=== PATIENT | female | born 1945 | race Caucasian/White ===

== ENCOUNTER 2016-05-31 22:53 | Inpatient (IN) | payer OTHER, MEDICARE ==
[~2016-05-31] VITALS: Ht 162.6 cm; Wt 54.4 kg
--- NOTE | 2016-05-31 23:05 | NUR ---
PT BIBA, PER EMS PTS BROTHER CALLED 911 FOR SISTER HAVING ALTERED MENTAL STATUS. PTS BROTHER WAS FOUND TO BE INTOXICATED, PT ARRIVES CONFUSED TO PLACE AND TIME BUT AWARE OF PERSON. PT HAS NO STROKE DEFICITS NOTED. FACIAL SYMMETRY WNL, SPEECH CLEAR. PT HAS NO HISTORY OF CVA.
--- NOTE | 2016-05-31 23:05 | NUR ---
PT BIBA FOR ALTERED MENTAL STATUS. 911 CALLED BY PT'S BROTHER. PER EMS, PT CONFUSED ON ARRIVAL. PT CONFUSED ON ARRIVAL TO ER.
--- NOTE | 2016-05-31 23:28 | NUR ---
PT TO CT SCAN VIA STRETCHER
--- NOTE | 2016-05-31 23:39 | ED AMS/SEIZURE/WEAK/DIZZY ---
History of Present Illness General Chief Complaint: Altered Mental Status Stated Complaint: AMS Source: patient, family, old records, EMS Exam Limitations: clinical condition, poor historian Vital Signs & Intake/Output Vital Signs & Intake/Output Vital Signs Date Time Temp Pulse Resp B/P Pulse O2 O2 Flow FiO2 Ox Delivery Rate 05/31 2304 96.0 70 20 101/59 99 Room Air Allergies Coded Allergies: NO KNOWN ALLERGIES (02/03/12) Triage Note: PT'S BROTHER CALLED EMS FOR PT FOR ALTERED MENTAL STATUS. PT WAS CONFUSED ON ARRIVAL OF EMS. Triage Nurses Notes Reviewed? yes Onset: Just prior to arrival Duration: constant, continues in ED Timing: recent history Severity: moderate No Modifying Factors: none LMP (ages 10-50): post menopausal : No Patient currently breastfeeds: No HPI: Prior to admission EMS report brother called due to patient confusion. The patient denies fever chills nausea vomiting diarrhea abdominal pain chest pain shortness of breath headache dysuria rash bleeding. Past History Medical History Any Pertinent Medical History? none Surgical History Surgical History: non-contributory Psychosocial History What is your primary language French Family History Hx Contributory? No Review of Systems Review of Systems Constitutional: Reports: no symptoms. EENTM: Reports: no symptoms. Respiratory: Reports: no symptoms. Cardiovascular: Reports: no symptoms. GI: Reports: no symptoms. Genitourinary: Reports: no symptoms. Musculoskeletal: Reports: no symptoms. Skin: Reports: no symptoms. Neurological/Psychological: Reports: see HPI, cognitive dysfunction, confusion. Hematologic/Endocrine: Reports: no symptoms. Immunologic/Allergic: Reports: no symptoms. All Other Systems: Reviewed and Negative Physical Exam Physical Exam General Appearance: well developed/nourished, alert, awake, anxious, mild distress, thin Head: atraumatic, normal appearance Eyes: Bilateral: normal appearance, PERRL, EOMI. Ears, Nose, Throat: normal pharynx, normal ENT inspection, hearing grossly normal, moist mucus membranes Neck: normal inspection, supple, full range of motion, no midline tenderness Respiratory: normal breath sounds, chest non-tender, no respiratory distress, quiet respiration, lungs clear Cardiovascular: regular rate/rhythm, normal peripheral pulses, norml femoral pulses equa Peripheral Pulses: 4+ carotid (R), 4+ carotid (L) Gastrointestinal: normal bowel sounds, soft, non-tender, no organomegaly Back: normal inspection, normal range of motion Extremities: normal range of motion, no ligament instability Neurologic/Psych: no motor/sensory deficits, awake, alert, normal mood/affect, 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 Skin: intact, normal color, warm/dry Lymphatic: no anterior cervical donald Core Measures ACS in differential dx? No CVA/TIA Diagnosis: No Severe Sepsis Present: No Septic Shock Present: No Progress Differential Diagnosis: alcohol intoxication, CVA/stroke, drug intoxication, electrolyte imbalance, intracranial Hem. Plan of Care: Orders Procedure Date/time Status Regular Diet 06/02 B Active OXYGEN SETUP (GEN) 06/01 124 Active Saline Lock 06/01 124 Active Admit to inpatient 06/01 124 Active Vital Signs 06/01 124 Active Activity/Ambulation 06/01 124 Active Code Status 06/01 124 Active Add-on Test (ER Only) 05/31 235 Active URINALYSIS 05/31 2322 Active TROPONIN LEVEL 05/31 2322 Complete ETHANOL 05/31 2322 Complete COMPREHENSIVE METABOLIC PANEL 05/31 2322 Complete CBC WITHOUT DIFFERENTIAL 05/31 2322 Complete EKG 05/31 2322 Active Laboratory Tests 06/01/16 0003: Anion Gap 9, Estimated GFR > 60, BUN/Creatinine Ratio 18.8, Glucose 96, Calcium 9.6, Total Bilirubin 0.4, AST 18, ALT 31, Alkaline Phosphatase 45, Troponin I < 0.01, Total Protein 6.4, Albumin 4.0, Globulin 2.4, Albumin/Globulin Ratio 1.7, CBC w Diff NO MAN DIFF REQ, RBC 3.89 L, MCV 95.6, MCH 32.0 H, RDW 12.5, MPV 10.4, Gran % 65.7, Lymphocytes % 27.1, Monocytes % 4.4, Eosinophils % 2.0, Basophils % 0.8, Absolute Granulocytes 5.3, Absolute Lymphocytes 2.2, Absolute Monocytes 0.4, Absolute Eosinophils 0.2, Absolute Basophils 0.1, PUBS MCHC 33.5, Serum Alcohol < 10.0 Diagnostic Imaging: Viewed by Me: Radiology Read, CT Scan. Discussed w/RAD: Radiology Read, CT Scan. Initial ED EKG: normal axis, normal intervals, normal p-waves, normal QRS complex, normal sinus rhythm, no ST T wave changes Rhythm Strip: normal sinus rhythm Departure Departure Time of Disposition: 99 Disposition: STILL A PATIENT Condition: Stable Clinical Impression Primary Impression: Altered mental status, unspecified Qualifiers: Altered mental status type: disorientation Qualified Code: R41.0 - Disorientation, unspecified Secondary Impressions: Dementia Qualifiers: Dementia type: unspecified type Dementia behavioral disturbance: without behavioral disturbance Qualified Code: F03.90 - Unspecified dementia without behavioral disturbance Referrals: PATIENT HAS NO PRIMARY CARE DR (PCP/Family) Departure Forms: Customer Survey General Discharge Information Admission Note Spoke With: TRISTAN AZEVEDO,[facility] Documentation of Exam: Documentation of any treatments & extenuating circumstances including Concerns Regarding Discharge (functional status, medication knowledge or non-compliance, living conditions, etc.) that warrant an admission rather than observation: Serial neurologic exam investigation into home situation obtain collateral information from family medication adjustment geriatric evaluation continuing care discharge planning
--- NOTE | 2016-05-31 23:41 | NUR ---
EKG IN PROGRESS
--- NOTE | 2016-06-01 00:03 | CT SCAN REPORT ---
EXAMINATION: CT HEAD WITHOUT CONTRAST CLINICAL INFORMATION: Altered mental status. Question cerebrovascular accident. COMPARISON: CT scan of the head 02/03/2012. TECHNIQUE: Contiguous axial imaging was performed from the skull base to vertex without intravenous administration of contrast. DLP: 600.71 mGy-cm FINDINGS: There is no acute intracranial hemorrhage or abnormal extra-axial collection. No intracranial mass effect or midline shift. Lateral and third ventricles are normal. No hydrocephalus. Martinez-white matter differentiation is preserved and there is no evidence of acute territorial infarct. The calvarium and skull base are intact. Mastoid air cells and middle ear cavities are well aerated. Visualized paranasal sinuses are well aerated. Globes and orbits are symmetric. IMPRESSION: Unremarkable CT scan of the head. No evidence of acute territorial infarct or hemorrhage.
--- NOTE | 2016-06-01 00:06 | NUR ---
IV EST #20 IN [place], BLOOD DRAWN AND SENT TO LAB -SST,BLUE,LAV,LOAIZA
[2016-06-01 00:14] LABS: ABSOLUTE BASOPHIL COUNT 0.1 /CUMM (0.0-0.2); ABSOLUTE EOSINOPHIL COUNT 0.2 /CUMM (0.0-0.7); ABSOLUTE GRANULOCYTE CT 5.3 /CUMM (1.4-6.5); ABSOLUTE LYMPH COUNT 2.2 /CUMM (1.2-3.4); ABSOLUTE MONOCYTE COUNT 0.4 /CUMM (0.10-0.60); BASOPHIL % 0.8 % (0.0-2.0); GRANULOCYTE % 65.7 % (42.2-75.2); HEMATOCRIT 37.2 % (37-47); MEAN CORPUSCULAR HGB CONC 33.5 G/DL (33.0-37.0); MEAN CORPUSCULAR VOLUME 95.6 FL (81.0-99.0); MEAN PLATELET VOLUME 10.4 FL (7.4-10.4); PLATELET COUNT 174 /CUMM (130-400); RBC DISTRIBUTION WIDTH 12.5 % (11.5-14.5); RED BLOOD CELL CT 3.89 /CUMM (4.20-5.40); WHITE BLOOD CELL COUNT 8.1 /CUMM (4.8-10.8)
--- NOTE | 2016-06-01 00:17 | RADIOLOGY REPORT ---
EXAMINATION: XR PORTABLE CHEST CLINICAL INFORMATION: Altered mental status. Question pneumonia. COMPARISON: Altered mental status. TECHNIQUE: Portable AP view of the chest was obtained. FINDINGS: Lungs are well-expanded. No focal consolidative disease, pleural effusion, or pneumothorax. The cardiac silhouette and upper mediastinal contours are normal. No acute osseous finding. IMPRESSION: Unremarkable chest radiograph. No consolidative disease or effusion.
--- NOTE | 2016-06-01 01:19 | NUR ---
HOUSE STAFF AT BEDSIDE
--- NOTE | 2016-06-01 01:41 | History & Physical ---
QUINTEN AZEVEDO,LISY 06/01/16 0141: General Information and HPI MD Statement: I have seen and personally examined BERNIE CRAIG and documented this H&P. The patient is a 70 year old F who presented with a patient stated chief complaint of [AMS]. Source of Information: patient, old records Exam Limitations: unable to give history, dementia, poor historian History of Present Illness: This is a 70-year-old female with no known past medical history on no medications who presents with chief complaint of AMS. Very little history is obtainable from patient as she is forgetful and confused. Supposedly, patient was sent in by ambulance by son for worsening confusion. Patient denies any recent illnesses, denies any past medical history, states she does not take any medications, denies cough, nausea, vomiting, diarrhea constipation, chest pain, shortness of breath, or pain. She states that she is a usual health but is unable to recall many details of her life. She cannot remember her family members names. She is alert and oriented to self, place, but not much else including year. She does endorse smoking history of "over a thousand years," denies drinking, or IVDA. She states that she has not seen a doctor in many years. Last admission in [facility] was in 2000, no records archived. She has had ED visits in January 2012 during which son stated that his mother was having worsening confusion. Allergies/Medications Allergies: Coded Allergies: NO KNOWN ALLERGIES (02/03/12) Compliance With Home Meds: UNKNOWN Past History Surgical History Surgical History: non-contributory Past Family/Social History Psychosocial History Primary Language: Spanish Smoking Status: Current Everyday Smoker ETOH Use: denies use Illicit Drug Use: denies illicit drug use Functional Ability ADLs Independent: dressing, eating, toileting, bathing. Ambulation: independent IADLs Independent: shopping, housework, finances, food prep, telephone, transportation , medication admin. Review of Systems Review of Systems Constitutional: Reports: no symptoms. Denies: chills, fever, malaise, weakness, unexplained weight loss. EENTM: Reports: no symptoms. Cardiovascular: Denies: chest pain, palpitations. Respiratory: Denies: cough, short of breath. GI: Reports: no symptoms. Denies: abdominal pain, diarrhea, distention, melena, nausea, vomiting. Genitourinary: Reports: no symptoms. Musculoskeletal: Denies: back pain. Neurological/Psychological: Reports: cognitive dysfunction, confusion. Denies: headache, pre-existing deficit, tremors, tonic-clonic seizures. Exam & Diagnostic Data Last 24 Hrs of Vital Signs/I&O Vital Signs Date Time Temp Pulse Resp B/P Pulse O2 O2 Flow FiO2 Ox Delivery Rate 06/01 0152 96.0 71 18 124/64 97 Room Air 05/31 2304 96.0 70 20 101/59 99 Room Air Physical Exam General Appearance Alert, No Acute Distress, aox2 Skin No Rashes, No Significant Lesion HEENT Atraumatic, PERRLA, EOMI, Mucous Membr. moist/pink Neck Supple, No thryomegaly Cardiovascular Regular Rate, Normal S1, Normal S2, No Murmurs Lungs Clear to Auscultation, some mild crackles Abdomen Soft, No Tenderness Last 24 Hrs of Labs/Damian: Laboratory Tests 06/01/16 0137: Urine Opiates Screen < 100.00, Methadone Screen < 40, Barbiturate Screen < 60, Ur Phencyclidine Scrn < 6.00, Amphetamines Screen 193, U Benzodiazepines Scrn < 85, Urine Cocaine Screen < 50, Urine Cannabis Screen < 5.00, Urine Color YEL, Urine Clarity HAZY H, Urine pH 5.5, Ur Specific [place] >= 1.030, Urine Protein TRACE H, Urine Ketones TRACE H, Urine Nitrite NEG, Urine Bilirubin NEG@ICTO, Urine Urobilinogen 1.0, Ur Leukocyte Esterase TRACE H, Ur Microscopic SEDIMENT EXAMINED, Urine RBC 1-3, Urine WBC 5-10 H, Ur Epithelial Cells MOD H, Urine Bacteria FEW H, Urine Mucus PACKD H, Urine Hemoglobin NEG, Urine Glucose NEG 06/01/16 0003: Anion Gap 9, Estimated GFR > 60, BUN/Creatinine Ratio 18.8, Glucose 96, Calcium 9.6, Total Bilirubin 0.4, AST 18, ALT 31, Alkaline Phosphatase 45, Troponin I < 0.01, Total Protein 6.4, Albumin 4.0, Globulin 2.4, Albumin/Globulin Ratio 1.7, Vitamin B12 Pending, 25-OH Vitamin D Total 24.2 L, Folate Pending, TSH 1.970, CBC w Diff NO MAN DIFF REQ, RBC 3.89 L, MCV 95.6, MCH 32.0 H, RDW 12.5, MPV 10.4, Gran % 65.7, Lymphocytes % 27.1, Monocytes % 4.4, Eosinophils % 2.0, Basophils % 0.8, Absolute Granulocytes 5.3, Absolute Lymphocytes 2.2, Absolute Monocytes 0.4, Absolute Eosinophils 0.2, Absolute Basophils 0.1, PUBS MCHC 33.5, Serum Alcohol < 10.0 Assessment/Plan Assessment: This is a 70 yo male with unknown PMH on no medications who was sent in for worsening confustion. Differential for this lady includes, delerium, multi infarct dementia, progressive alzheimers dementia, b12 deficiency--> subacute combined degneration, and hypothyroidism. PLAN: 1. AMS: Most likely 2/2 worsening dementia as son mentioned similar complaint in 2012. However, need to r/o reversible etiologies including, delirium, substance intox/withdrawl, vascular dementia, b12, deficiency, and hypothyroidism. Note that pt appears to have dirty UA, without fever, or white count. Specimen does not look like clean catch. At this time not treating with abx. * check utox * b12 * tsh t4 * vitamin d * b12 * folate * consider CT head, but as BP controlled will hold off currently * call son in AM for further details As Ranked By This Provider Problem List: 1. Dementia Qualifiers Dementia type: unspecified type Dementia behavioral disturbance: without behavioral disturbance Qualified Code: F03.90 - Unspecified dementia without behavioral disturbance 2. Altered mental status, unspecified Qualifiers Altered mental status type: disorientation Qualified Code: R41.0 - Disorientation, unspecified Core Measures/Miscellaneous Acute Coronary Syndrome ACS Diagnosis: No Cerebrovascular Accident CVA/TIA Diagnosis: No Congestive Heart Failure CHF Diagnosis: No Venous Thromboembolism VTE Risk Factors: Acute medical illness, Age > 40 [facility] d/t: No contraindications No VTE Pharm Prophylaxis d/t: No contraindications VTE Diagnosis: No VTE Type: NONE VTE Confirmed by (Test): NONE Severe Sepsis Severe Sepsis Present: No Septic Shock Septic Shock Present: No Miscellaneous Documentation Attending Case Discussed With: TRISTAN AZEVEDO,[facility] Primary Care Physician: PATIENT HAS NO PRIMARY CARE DR Patient sees these Specialists unknown Level of Patient Care: General Medicine KEMAL AZEVEDO,SAMY 06/01/16 0223: Resident Review Statement Resident Statement: examined this patient, discussed with internal control specialist, agreed with internal control specialist, discussed with family, reviewed EMR data (avail), discussed with nursing , discussed with case mgmt, reviewed images, amended to note Other Findings: 70-year-old woman with unknown medical history,? Dementia who is brought in by ambulance after patient's brother called EMS because he thought she was confused. The patient herself is awake alert oriented to self, place but not time. She knows who the president is but is hazy on details 1. Further. She claims she does not know where her home is. She appears thin, cachectic. We do not know her home situation is like, she does report decreased by mouth intake and appetite. Her diet may consist of tea and toast. Vital signs stable. Physical examination is notable for thin cachectic woman otherwise unremarkable. Labs unremarkable with exception of urinalysis demonstrating positive esterase, 5-10 WBCs. Epithelial cells suggest poor sample. In the absence of symptoms, systemic signs of infection we don't feel that this patient has urinary tract infection. Although her reliability as a historian may be in question. This may be a stepwise decline in the patient's dementia, or acute delirium. Or perhaps a manifestation of subacute combined degeneration due to B12 deficiency. She also may have thyroid hormone dysfunction causing altered mental status. - Problems - Altered mental status/dementia/delirium -Plan- Admitted to general medicine Check vitamin B12, TSH, vitamin D, urine toxicology Avoid delirium triggers Geriatrics consultation Social work consultation Lovenox DVT prophylaxis Full code TRISTAN AZEVEDO, [facility] 06/01/16 0452: Attending MD Review Statement Attending Statement Attending MD Statement: examined this patient, discuss w/resident/PA/[employer] GENER[employer] MARKETING MANAGER, agreed w/resident/PA/LE[employer] GENER[employer] MARKETING MANAGER Attending Assessment/Plan: This is an unfortunate 70 yo F who is brought in for evaluation of altered mentation/ confusion. We do not have any collateral information. Patient unable to tell us her medical problems or if she is on any medications. No previous records or medication claim history. From EMS records, it appears that patient's brother (who is an alcoholic and frequent flyer to [facility]) called 911as he found her confused. Patient is oriented to self and knows she is at [place], but not to time. She denies any systemic symptoms. VSS. Labs unremarkable. CT head/ CXR neg. EKG: SR. 1. AMS in this elderly lady likely acute delirium vs. Worsening dementia. GM admit, check TSH, free T4, B12, folic acid, Vit D. Avoid delirium triggers - dehydration, constipation, sedative meds. Frequent orientation. Please obtain collateral information with patient's brother or son in AM. She will benefit from geriatric eval. Social work eval and possible placement. DVT ppx Lovenox. Full code.
--- NOTE | 2016-06-01 01:41 | NUR ---
URINE SAMPLE SENT TO LAB
--- NOTE | 2016-06-01 01:58 | NUR ---
ATTEMPTED TO CALL NEXT OF KIN LISTED, NO ANSWER. PT MADE AWARE.
--- NOTE | 2016-06-01 02:14 | NUR ---
BED ASSIGNMENT 215-01
--- NOTE | 2016-06-01 02:18 | NUR ---
ATTEMPTED TO CALL REPORT, FLOOR SAID THEY WOULD CALL BACK
--- NOTE | 2016-06-01 02:32 | Admission Certification ---
Admission Certification Certification Statement - As attending physician, I certify that at the time of - admission, based on clinical presentation, severity of - symptoms, need for further diagnostic testing and - therapeutic interventions, and risk of adverse outcomes - without in-hospital treatment, in my clinical assessment, - this patient requires an acute hospital stay for a minimum - of two nights or longer. I have also considered psychsocial - factors such as support system, advanced age, financial - issues, cognitive issues, and failed out-patient treatments, - past re-admission history, safety of patient, and lack of - compliance as applicable. Specific rationale supporting this admission is: Altered mental status.
--- NOTE | 2016-06-01 02:48 | NUR ---
REPORT GIVEN TO HERIBERTO HARRISON
[2016-06-01 03:41] VITALS: BP 138/72
--- NOTE | 2016-06-01 03:52 | NUR ---
NURSE NOTE": PT ARRIVED TO FLOOR AT 0300, AAOX1, RA, ESCORTED BY ED STAFF ON WHEELCHAIR. PT IS CONFUSED AT THIS TIME. FALL PRECAUTIONS IN PLACE.VITALS ARE STABLE. WILL CONTINUE TO MONITOR.
[2016-06-01 07:31] VITALS: BP 141/77
--- NOTE | 2016-06-01 10:27 | PN- Att Addend ---
Attending Addendum Attending Brief Note Patient seen and examined. She is pleasantly confused. Her only complaint is her long toenails that needs to be cut. This is a 70-year-old female who was sent into the ER after her brother who was intoxicated called 911 when he found her confused. The night team was not able to get any history from her. We need to get collateral information from the son. She likely has an underlying diagnosis of dementia as previous ED records states she has been confused. There is no PCP and no meds. She is B12 deficient and it's fairly low so we'll give her parenteral B12. Will check TSH, folate. CT head was negative and there is no focus of infection at this time. The most important thing is to get collateral history from the and she may need social work and case management eval for questionable placement.
--- NOTE | 2016-06-01 13:00 | NUR ---
PT IN LETY AT BEGINNING OF SHIFT FOR UNSAFE AMBULATION. SHE TOOK OFF LETY REPEATEDLY. MD QUILES CALLED AND MADE AWARE OF RECOMMENDATION TO DC LETY AND ORDER SITTER. PT IS CALM AND COOPERATIVE WITH THE SITTER AT THIS TIME. WILL CONTINUE TO MONITOR.
[2016-06-01 22:37] VITALS: BP 134/69
[2016-06-02 06:19] VITALS: BP 112/66
--- NOTE | 2016-06-02 08:21 | PN- Housestaff ---
MARLO AZEVEOD,[facility] 06/02/16 0821: Subjective Follow-up For: Altered mental status and confusion Subjective: Afebrile, no acute overnight events reported, sitting on chair looks relaxed and comfortable, patient is ambulating independently around the floor, she saturating well on room air, her vitals are stable. Patient has very long nails for which podiatry was called yesterday. She denies any current complaints. Review of Systems Constitutional: Reports: no symptoms. Objective Last 24 Hrs of Vital Signs/I&O Vital Signs Date Time Temp Pulse Resp B/P Pulse O2 O2 Flow FiO2 Ox Delivery Rate 06/02 0619 97.8 64 16 112/66 100 Room Air 06/01 2237 97.2 65 20 134/69 97 Room Air Physical Exam General Appearance: Alert, Oriented X3, Cooperative, No Acute Distress Skin: No Rashes Cardiovascular: Regular Rate, Normal S1, Normal S2, No Murmurs Lungs: Clear to Auscultation Abdomen: Soft, No Tenderness Extremities: No Clubbing, No Cyanosis, No Edema Current Medications: Current Medications Sig/Debbie Start time Last Medication Dose Route Stop Time Status Admin Acetaminophen 650 MG Q6P PRN 06/01 0200 AC PO Cyanocobalamin 1,000 MCG DAILY 06/01 1000 AC 06/01 PO 1033 Enoxaparin Sodium 40 MG DAILY 06/01 1000 AC SC Nicotine 14 MG DAILY 06/01 1237 AC TOP Last 24 Hrs of Lab/Damian Results Last 24 Hrs of Labs/Mics: Laboratory Tests 06/02/16 0615: Sodium Pending, Potassium Pending, Chloride Pending, Carbon Dioxide Pending, Anion Gap Pending, BUN Pending, Creatinine Pending, BUN/Creatinine Ratio Pending , CBC w Diff Pending, WBC Pending, RBC Pending, Hgb Pending, Hct Pending, MCV Pending, MCH Pending, RDW Pending, Plt Count Pending, MPV Pending, PUBS MCHC Pending Assessment/Plan Assessment: 70-year-old woman with unknown medical history,? Dementia who is brought in by ambulance after patient's brother called EMS because he thought she was confused. The patient herself is awake alert oriented to self, place but not time. Since the morning patient has been ambulating with the nurse. We tried multiple time to call her son so we have a better understanding of her baseline mental status, however we couldn't get hold of him. #Altered mental status/dementia/delirium Her labs including cbc, bep, liver function, folic acid, are WNL * We will try to call the family again * We will bleed B12 as necessary # Onychocryptosis bilaterally. Bedside debridement performed by Podiatry without any incident. * NTD Regular diet Lovenox for DVT prophylaxis Full code Problem List: 1. Altered mental status, unspecified 2. Dementia Pain Ratin Pain Location: na Pain Goal: Remain pain free Pain Plan: See assessment and plan Tomorrow's Labs & Rationales: See assessment and plan FLAQUITA AZEVEDO,VIJI 06/02/16 1309: Attending MD Review Statement Attending Statement Attending MD Statement: examined this patient, discuss w/resident/PA/PROJECT SCHEDULER, agreed w/resident/PA/PROJECT SCHEDULER, reviewed EMR data (avail), discussed with nursing, discussed with case mgmt, reviewed images, amended to note Attending Assessment/Plan: Patient seen and examined, offers no complaints. Pleasantly confused. Denies any aches, pains. Seen by podiatry this for trimming of toe nails. Vital Signs Date Time Temp Pulse Resp B/P Pulse O2 O2 Flow FiO2 Ox Delivery Rate 06/02 0619 97.8 64 16 112/66 100 Room Air 06/01 2237 97.2 65 20 134/69 97 Room Air on exam; awaek, nad, pleasantly confused. cv; s1,s2, rrr resp; clear abd; soft, nt, bs+ ext; no edema Laboratory Tests 06/02 0615 Chemistry Sodium (137 - 145 mmol/L) 138 Potassium (3.5 - 5.1 mmol/L) 3.9 Chloride (98 - 107 mmol/L) 107 Carbon Dioxide (22 - 30 mmol/L) 26 Anion Gap (5 - 16) 5 BUN (7 - 17 mg/dL) 13 Creatinine (0.5 - 1.0 mg/dL) 0.8 Estimated GFR (>60 ml/min) > 60 BUN/Creatinine Ratio (7 - 25 %) 16.3 Hematology CBC w Diff NO MAN DIFF REQ WBC (4.8 - 10.8 /CUMM) 5.3 RBC (4.20 - 5.40 /CUMM) 3.87 L Hgb (12.0 - 16.0 G/DL) 12.3 Hct (37 - 47 %) 37.2 MCV (81.0 - 99.0 FL) 96.2 MCH (27.0 - 31.0 PG) 31.8 H RDW (11.5 - 14.5 %) 13.0 Plt Count (130 - 400 /CUMM) 161 MPV (7.4 - 10.4 FL) 10.1 Gran % (42.2 - 75.2 %) 35.5 L Lymphocytes % (20.5 - 51.1 %) 53.0 H Monocytes % (1.7 - 9.3 %) 7.1 Eosinophils % (0 - 5 %) 3.5 Basophils % (0.0 - 2.0 %) 0.9 Absolute Granulocytes (1.4 - 6.5 /CUMM) 1.9 Absolute Lymphocytes (1.2 - 3.4 /CUMM) 2.8 Absolute Monocytes (0.10 - 0.60 /CUMM) 0.4 Absolute Eosinophils (0.0 - 0.7 /CUMM) 0.2 Absolute Basophils (0.0 - 0.2 /CUMM) 0 PUBS MCHC (33.0 - 37.0 G/DL) 33.0 A/P; 70 y/o F with PMh sig for ? dementia, who is admitted with AMS. patient has vit B12 deficiency and has been started on replacement. The exact cause of her altered mental status is not clear. I tried to call her son but no blood and picked up the phone. Been to get information from family to see what his baseline (patient is actually different than her baseline. Agree with parenteral vitamin B12 replacement. Patient has been walking with the nursing staff. DVT prophylaxis: Lovenox. She has been seen by podiatry and her toe nails were trimmed.
[2016-06-02 08:51] LABS: ABSOLUTE BASOPHIL COUNT 0 /CUMM (0.0-0.2); ABSOLUTE EOSINOPHIL COUNT 0.2 /CUMM (0.0-0.7); ABSOLUTE GRANULOCYTE CT 1.9 /CUMM (1.4-6.5); ABSOLUTE LYMPH COUNT 2.8 /CUMM (1.2-3.4); ABSOLUTE MONOCYTE COUNT 0.4 /CUMM (0.10-0.60); BASOPHIL % 0.9 % (0.0-2.0); EOSINOPHIL % 3.5 % (0-5); GRANULOCYTE % 35.5 % (42.2-75.2); HEMATOCRIT 37.2 % (37-47); MEAN CORPUSCULAR HGB 31.8 PG (27.0-31.0); MEAN CORPUSCULAR VOLUME 96.2 FL (81.0-99.0); MEAN PLATELET VOLUME 10.1 FL (7.4-10.4); PLATELET COUNT 161 /CUMM (130-400); RED BLOOD CELL CT 3.87 /CUMM (4.20-5.40); WHITE BLOOD CELL COUNT 5.3 /CUMM (4.8-10.8)
--- NOTE | 2016-06-02 08:55 | Cons- Podiatry ---
General Information and HPI Consulting Request Date of Consult: 06/02/16 Requested By: VIJI SAMS MD History of Present Illness: Imelda is a 70-year-old female admitted for altered mental status and was noted on physical exam to have elongated and painful nails bilaterally. Allergies/Medications Allergies: Coded Allergies: NO KNOWN ALLERGIES (02/03/12) Past History Surgical History Pertinent Surgical History: non-contributory Psychosocial History Primary Language: Wolof Smoking Status: Current Everyday Smoker ETOH Use: denies use Illicit Drug Use: denies illicit drug use Functional Ability ADLs Independent: dressing, eating, toileting, bathing. Ambulation: independent IADLs Independent: shopping, housework, finances, food prep, telephone, transportation , medication admin. Review of Systems Review of Systems: Unremarkable except for that noted history of present illness Exam & Diagnostic Data Vital Signs and I&O Vital Signs Date Time Temp Pulse Resp B/P Pulse O2 O2 Flow FiO2 Ox Delivery Rate 06/02 0619 97.8 64 16 112/66 100 Room Air 06/01 2237 97.2 65 20 134/69 97 Room Air Intake & Output 06/02 1600 06/02 0800 06/02 0000 06/01 1600 06/01 0800 06/01 0000 Intake Total 800 240 Output Total Balance 800 240 Intake, Oral 800 240 Patient 120 lb Weight Physical Exam: Elongated and dystrophic nails, especially involving the great toes bilaterally. Onychomycosis and onychocryptosis noted one through 5 bilaterally. Neurovascular status grossly intact. Assessment/Plan Assessment/Plan Onychocryptosis bilaterally. Bedside debridement performed without incident. Consult Acknowledgment - Thank you for your consult request. Attending MD Review Statement Attending Statement Attending MD Statement: examined this patient
--- NOTE | 2016-06-02 14:15 | NUR ---
Referral received this am via electronic telephone order clerk room service. This patient is a 70 year old female, admitted to the hospital yesterday with a diagnosis of AMS. Reason for referral was "AMS" and according to note dictated by Dr. Tapan Zamudio, social work and case management assist may be necessary as patient may need placement. Patient has full HUSKY if she needs to go to [facility]. Will follow to better assess aftercare needs and support case managments efforts for safe discharge planning.
--- NOTE | 2016-06-02 15:18 | Patient Discharge Instructions ---
Discharge Instructions General Discharge Information You were seen/treated for: Alter mental status and confusion Special Instructions: Please follow-up with primary care doctor within 1 week Please follow up with neurology within 1 week These repeat vitamin B12 level after 3 months. Diet Continue normal diet: Yes Recommended Diet: Regular Activity Full Activity/No Limits: Yes Activity Self Limited: Yes Acute Coronary Syndrome Inclusion Criteria At DC or during hospital stay patient has or had the following: ACS DIAGNOSIS No Discharge Core Measures Meds if any: Prescribed or Continued at Discharge Meds if any: NOT Prescribed or Continued at Discharge Congestive Heart Failure Inclusion Criteria At DC or during hospital stay patient has or had the following: CHF DIAGNOSIS No Discharge Core Measures Meds if any: Prescribed or Continued at Discharge Meds if any: NOT Prescribed or Continued at Discharge Cerebrovascular accident Inclusion Criteria At DC or during hospital stay patient has or had the following: CVA/TIA Diagnosis No Discharge Core Measures Meds if any: Prescribed or Continued at Discharge Meds if any: NOT Prescribed or Continued at Discharge Venous thromboembolism Inclusion Criteria VTE Diagnosis No VTE Type NONE VTE Confirmed by (Test) NONE Discharge Core Measures - Per Current guidelines, there needs to be overlap - treatment for the first 5 days of Warfarin therapy. - If discharged on Warfarin prior to 5 days of - overlap therapy, the patient will need to be - assessed for post discharge needs including - *Post discharge parental anticoagulation - *Warfarin and/or parental anticoagulation education - *Follow up date to check INR post discharge At least 5 days overlap therapy as Inpatient No Meds if any: Prescribed or Continued at Discharge Note: Overlap Therapy is Warfarin and Anticoagulant Meds if any: NOT Prescribed or Continued at Discharge
--- NOTE | 2016-06-02 15:59 | Discharge Summary ---
See Addendum Visit Information Visit Dates Admission Date: 06/01/16 Discharge Date: 06/03/2016 Hospital Course Course Attending Physician: FLAQUITA AZEVEDO,VIJI Primary Care Physician: PATIENT HAS NO PRIMARY CARE DR Hospital Course: 70 year old Woman who was brought in for evaluation of altered mentation/ confusion. We did not have any collateral information. Patient was unable to tell her medical problems or if she was on any medications. No previous records or medication claim history was available on EMR. From EMS records, it appeared that patient's brother (who was an alcoholic and frequent flyer to [place] [facility]) called 911 as he found her confused. Patient was oriented to self and knew she was at [place], but not to time. She denied any systemic symptoms. Vital Signs Date Time Temp Pulse Resp B/P Pulse O2 O2 Flow FiO2 Ox Delivery Rate 05/31 2304 96.0 70 20 101/59 99 Room Air Laboratory Tests 06/01/16 0003: Anion Gap 9, Estimated GFR > 60, BUN/Creatinine Ratio 18.8, Glucose 96, Calcium 9.6, Total Bilirubin 0.4, AST 18, ALT 31, Alkaline Phosphatase 45, Troponin I < 0.01, Total Protein 6.4, Albumin 4.0, Globulin 2.4, Albumin/Globulin Ratio 1.7, CBC w Diff NO MAN DIFF REQ, RBC 3.89 L, MCV 95.6, MCH 32.0 H, RDW 12.5, MPV 10.4, Gran % 65.7, Lymphocytes % 27.1, Monocytes % 4.4, Eosinophils % 2.0, Basophils % 0.8, Absolute Granulocytes 5.3, Absolute Lymphocytes 2.2, Absolute Monocytes 0.4, Absolute Eosinophils 0.2, Absolute Basophils 0.1, PUBS MCHC 33.5, Serum Alcohol < 10.0. Initial ED EKG: normal axis, normal intervals, normal p-waves, normal QRS complex, normal sinus rhythm, no ST T wave changes. CHEST XRAY: Unremarkable chest radiograph. No consolidative disease or effusion. CT HEAD WO IV CONTRAST: Unremarkable CT scan of the head. No evidence of acute territorial infarct or hemorrhage. She was admitted on Gen. medicine floor. Medical team tried to get in touch with her family member but nobody picked up phone. She remained pleasantly confused and walking around on the floor. She was not having any complaints except long toenails. There was a suspicion for ingrown toenails so podiatry was called and bedside debridement was performed without incident. Exact cause of her altered mental status was not clear. She was found to have vitamin B12 deficiency and was started on parenteral vitamin B12. Her son was contacted, Ravin Cárdenas. According to son Patient is at her baseline. She has dementia for number fevers and she gets anxious at night. Ravin was recommending giving her something for sleep. Nighttime seems to be getting harder because she gets anxious. Ravin also mentioned that she's completely safe at home because there is always somebody around her. She never has to use the stove. She never has to go outside by herself. Ravin completely felt comfortable in taking her back home. Patient did not have any primary care provider. She was referred to [facility], Dr. Miller office. She was also started on vitamin B12 monthly injections. She was discharged home. She was medically stable upon discharge. Allergies: Coded Allergies: NO KNOWN ALLERGIES (02/03/12) Disposition Summary Disposition Principal Diagnosis: Altered mental status and confusion secondary to worsening dementia Additional Diagnosis: Vitamin B12 deficiency Discharge Disposition: home or self care Discharge Instructions General Discharge Information Code Status: Full Code Patient's Diet: Regular diet Patient's Activity: Independent Follow-Up Instructions/Appts: 1. Please follow-up with your regular doctor after discharge Medications at Discharge Discharge Medications: Start taking the following new medications: Cyanocobalamin (Vitamin B-12) (Cyanocobalamin Injection) 1,000 MCG/ML VIAL 1,000 Microgram INTRAMUSC ONCE A MONTH Qty = 3 No Refills Comments: Last Taken: 06/02/16 Time:11 AM Melatonin (Melatonin) 3 MG TABLET 1 Tablet ORAL Every night Qty = 30 No Refills Copies To: WILLIAMS AZEVEDO,SUSY
[2016-06-02 16:11] VITALS: BP 118/62
[2016-06-02 22:35] VITALS: BP 120/72
[2016-06-03 06:13] VITALS: BP 120/70
--- NOTE | 2016-06-03 07:17 | PN- Housestaff ---
See Addendum Subjective Follow-up For: Altered mental status most likely secondary to worsening dementia Subjective: Afebrile, no acute overnight events reported, sitting on chair looks relaxed and comfortable, patient is ambulating independently around the floor, she saturating well on room air, her vitals are stable. We called the some multiple time but we couldn't get hold of him, we will try again today. Review of Systems Constitutional: Reports: no symptoms. Objective Last 24 Hrs of Vital Signs/I&O Vital Signs Date Time Temp Pulse Resp B/P Pulse O2 O2 Flow FiO2 Ox Delivery Rate 06/03 0613 97.5 75 20 120/70 96 Room Air 06/02 2235 98.2 66 20 120/72 97 Room Air 06/02 1611 98.0 66 20 118/62 95 Intake & Output 06/03 1600 06/03 0800 06/03 0000 Intake Total 480 600 Output Total Balance 480 600 Intake, Oral 480 600 Physical Exam General Appearance: Alert, orianted X2 (not time) Skin: No Rashes HEENT: Atraumatic, PERRLA, EOMI, Mucous Membr. moist/pink Neck: Supple, No JVD Cardiovascular: Regular Rate, Normal S1, Normal S2, No Murmurs Lungs: Clear to Auscultation, Normal Air Movement Abdomen: Normal Bowel Sounds, Soft, No Tenderness Neurological: Normal Gait, Normal Speech Extremities: No Clubbing, No Cyanosis, No Edema, toes nails looks clean withwout any sings of bleeding or erythema around them Current Medications: Current Medications Sig/Debbie Start time Last Medication Dose Route Stop Time Status Admin Acetaminophen 650 MG Q6P PRN 06/01 0200 AC PO Cyanocobalamin 1,000 MCG Q30D 06/02 1000 AC 06/02 IM 1053 Enoxaparin Sodium 40 MG DAILY 06/01 1000 AC 06/03 SC 0844 Nicotine 14 MG DAILY 06/01 1237 06/03 TOP 0844 Patient Medication 1 ED ONE ONE 06/02 1400 DC [facility] ED 06/02 1401 Assessment/Plan Assessment: 70-year-old woman with unknown medical history,? Dementia who is brought in by ambulance after patient's brother called EMS because of gradual worsening of her confusion. The patient herself is awake alert oriented to self, place but not time. Since admission patient has been ambulating with the nurse. We tried multiple time to call her son so we have a better understanding of her baseline mental status, however we couldn't get hold of him. Today we got her other son number and we will try to call him. #Altered mental status/dementia/delirium Her labs including cbc, bep, liver function, folic acid, are WNL * We will try to call the family again today * We will give B12 as an inpatient as well as post discharge. * We will discuss with correctional case manager the plan of discharge # Onychocryptosis bilaterally. Bedside debridement was performed yesterday by Podiatry without any incident. * NTD Regular diet Lovenox for DVT prophylaxis Full code Problem List: 1. Dementia 2. Altered mental status, unspecified Pain Ratin Pain Location: na Pain Goal: Remain pain free Pain Plan: See assessment and plan Tomorrow's Labs & Rationales: See assessment and plan
[2016-06-03] MEDS ORDERED: MELATONIN3 M4 PO (13:39)
[2016-06-03] MEDS ORDERED: CYANOCOBAL1000 MCG/2 IM (13:39)
[2016-06-03 14:31] VITALS: BP 128/74
== END 2016-06-03 17:45 | DRG 884 ==
LOC: ENRESERVDT → ENRESERV → ENRESERVTM → ERH 22:53 → 2NB 06-01 01:25 → ERHI 06-01 01:25 → 2NB 06-01 02:55
PROVIDERS: Emergency Medicine; Student in an Organized Health Care Education/Training Program; ADMIT Student in an Organized Health Care Education/Training Program
PROC: 0HBRXZZ Excision of Toe Nail, External Approach (ICD-10-PCS; principal; 2016-06-02)
DX: F03.90 Unspecified dementia, unspecified severity, without behavioral disturbance, psychotic disturbance, mood disturbance, and anxiety (principal); R64 Cachexia; F05 Delirium due to known physiological condition; R41.82 Altered mental status, unspecified; Z68.20 Body mass index [BMI] 20.0-20.9, adult; L60.0 Ingrowing nail; E53.8 Deficiency of other specified B group vitamins; F17.210 Nicotine dependence, cigarettes, uncomplicated
CPT/HCPCS: 2NBSP; 80307; 81001; 82436; 93005; 93010; G0480; J1650; J3420